=== PATIENT | female | born 2000 | race Caucasian/White ===

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

== ENCOUNTER → 2019-05-19 | Outpatient (CLI) | payer OTHER ==
[~2019-05-19] MED LIST: LEXAPRO 10MG10 MG PO; ZOLOFT 25MG25 MG PO
== END ==
LOC: COL.RAD 10:09
DX: M89.38 Hypertrophy of bone, other site (principal); M89.8X9 Other specified disorders of bone, unspecified site